=== PATIENT | male | born 1955 | race Caucasian/White ===

== ENCOUNTER 2017-09-14 09:15 | Observation (INO) | payer MEDICARE ==
[2017-09-14 11:28] LABS: ANION GAP 18 (8-16); BLOOD UREA NITROGEN 56 mg/dl (7-20); CALCIUM 8.6 mg/dl (8.4-10.2); CARBON DIOXIDE 19 mmol/L (21-31); CHLORIDE 103 mmol/L (97-110); CREATININE 9.98 mg/dl (0.61-1.24); GLUCOSE 115 mg/dl (70-220); POTASSIUM 4.6 mmol/L (3.5-5.1); SODIUM 135 mmol/L (135-144)
[2017-09-14 14:12] LABS: ADD MAN DIFF? NO
[2017-09-14 14:18] LABS: ABNORMAL IP MESSAGE 1; BASOPHILS % 0.5 % (0.0-2.0); EOSINOPHILS # 0.2 10^3/ul (0.0-0.5); EOSINOPHILS % 3.4 % (0.0-7.0); HEMATOCRIT 28.4 % (42.0-52.0); HEMOGLOBIN 9.8 g/dl (14.0-18.0); LYMPHOCYTES % 16.8 % (15.0-51.0); MEAN CORPUSCULAR HEMOGLOBIN 30.4 pg (29.0-33.0); MEAN CORPUSCULAR HGB CONC 34.5 g/dl (32.0-37.0); MEAN CORPUSCULAR VOLUME 88.2 fl (82.0-101.0); MEAN PLATELET VOLUME 10.3 fl (7.4-10.4); MONOCYTE # 0.5 10^3/ul (0.3-0.9); MONOCYTES % 8.4 % (0.0-11.0); NEUTROPHIL # 4.2 10^3/ul (1.6-7.5); NEUTROPHILS % 70.4 % (39.0-77.0); PLATELET COUNT 66 10^3/UL (140-415); POSITIVE DIFF @See below; RED BLOOD COUNT 3.22 10^6/ul (4.70-6.10); RED CELL DISTRIBUTION WIDTH 13.5 % (11.5-14.5)
[2017-09-14] MEDS ORDERED: ACETAMINOPHEN 325 MG TAB PO (14:30)
[2017-09-14] MEDS ORDERED: ONDANSETRON 4 MG INJ IV (14:30)
[2017-09-14 14:38] LABS: INR 1.18; PROTIME 15.2 Sec (11.9-14.9); PT RATIO 1.2
[2017-09-14 14:39] LABS: PARTIAL THROMBOPLASTIN TIME 30.8 Sec (25.0-35.0)
[2017-09-14 14:57] LABS: ANISOCYTOSIS 1+ (0-0); BAND NEUTROPHILS % (M) 1 % (0-4); EOSINOPHILS % (M) 5 % (0-7); LYMPHOCYTES #M 0.8 10^3/ul (0.8-2.9); LYMPHOCYTES % (M) 14 % (15-51); MICROCYTOSIS 1+ (0-0); MONOCYTE #M 0.1 10^3/ul (0.3-0.9); MONOCYTES % (M) 3 % (0-11); MYELOCYTES % (M) 1 % (0-0); PLATELET ESTIMATE SIG DECREASED; POLYCHROMASIA 3+ (0-0); REACTIVE LYMPHOCYTES #M 0.2 10^3/ul (0.0-0.0); REACTIVE LYMPHOCYTES% (M) 4 % (0-0); SEG NEUT #M 4.3 10^3/ul (1.6-7.5); SEGMENTED NEUTROPHILS (M) % 72 % (39-77); SMUDGE%M 2 % (0-0)
[2017-09-14] MEDS ORDERED: NACL 0.9% 3 ML SYG IV (15:00)
[2017-09-14] MEDS: SOD CHLORIDE 0.9% 1,000 ML IV (15:04)
[2017-09-14 16:33] LABS: ADD UMIC YES; UR ASCORBIC ACID NEGATIVE (NEGATIVE); UR BILIRUBIN (Dip) NEGATIVE (NEGATIVE); UR BLOOD (Dip) NEGATIVE (NEGATIVE); UR CLARITY CLEAR (CLEAR); UR COLOR STRAW (YELLOW); UR GLUCOSE (Dip) 2+ mg/dL (NEGATIVE); UR KETONES (Dip) NEGATIVE (NEGATIVE); UR LEUKOCYTE ESTERASE (Dip) NEGATIVE Leu/ul (NEGATIVE); UR NITRITE (Dip) NEGATIVE (NEGATIVE); UR RBC 0 /HPF (0-5); UR SPECIFIC GRAVITY (Dip) 1.008 (1.003-1.030); UR TOTAL PROTEIN (Dip) 1+ mg/dl (NEGATIVE); UR UROBILINOGEN (Dip) NEGATIVE (NEGATIVE); UR WBC 2 /HPF (0-5)
[2017-09-14] MEDS ORDERED: ALBUMIN HUMAN 25% 50 ML IV (17:30)
[2017-09-14] MEDS ORDERED: SODIUM CHLORIDE 0.9% 1L BAG IV (17:30)
[2017-09-14] MEDS: CITRIC ACID/SODIUM CITRATE 15 ML CUP PO (21:00)
[2017-09-14] MEDS: TERAZOSIN 5 MG CAP PO (21:00)
[2017-09-14 23:30] LABS: ADD MAN DIFF? NO
[2017-09-14 23:31] LABS: WHITE BLOOD COUNT 5.7 10^3/ul (4.8-10.8)
[2017-09-14 23:31] LABS: ABNORMAL IP MESSAGE 1; BASOPHILS % 0.5 % (0.0-2.0); EOSINOPHILS # 0.2 10^3/ul (0.0-0.5); HEMATOCRIT 28.4 % (42.0-52.0); HEMOGLOBIN 9.7 g/dl (14.0-18.0); LYMPHOCYTES # 0.9 10^3/ul (0.8-2.9); LYMPHOCYTES % 15.6 % (15.0-51.0); MEAN CORPUSCULAR HEMOGLOBIN 30.1 pg (29.0-33.0); MEAN CORPUSCULAR HGB CONC 34.2 g/dl (32.0-37.0); MEAN CORPUSCULAR VOLUME 88.2 fl (82.0-101.0); MEAN PLATELET VOLUME 9.8 fl (7.4-10.4); MONOCYTE # 0.5 10^3/ul (0.3-0.9); MONOCYTES % 8.7 % (0.0-11.0); NEUTROPHIL # 4.1 10^3/ul (1.6-7.5); NEUTROPHILS % 70.9 % (39.0-77.0); PLATELET COUNT 83 10^3/UL (140-415); POSITIVE DIFF @See below; RED BLOOD COUNT 3.22 10^6/ul (4.70-6.10); RED CELL DISTRIBUTION WIDTH 13.6 % (11.5-14.5)
[2017-09-15] MEDS: PANTOPRAZOLE (EC) 40 MG TAB PO (08:16)
[2017-09-15] MEDS: AMIODARONE 200 MG TAB PO (08:16)
[2017-09-15] MEDS: CITRIC ACID/SODIUM CITRATE 15 ML CUP PO ×4 (08:17→20:45)
[2017-09-15 08:43] LABS: HAAIG REFLEX REFLEX FILED
[2017-09-15] MEDS: CALCIUM CARBONATE 500 MG CHEW TAB PO ×3 (11:07→18:54)
[2017-09-15 12:11] LABS: HEMOGLOBIN A1C 5.6 % (0-5.9)
[2017-09-15] MEDS ORDERED: BUPIVACAINE 0.25% (MPF) 30 ML INJ (12:47)
[2017-09-15] MEDS ORDERED: POLYMYXIN/BACITRACIN 1L IRRIG (12:48)
[2017-09-15] MEDS ORDERED: CALCIUM CARBONATE 500 MG CHEW TAB PO (12:50)
[2017-09-15] MEDS ORDERED: FENTAnyl 50 MCG/ML VIAL (13:19)
[2017-09-15] MEDS ORDERED: MIDAZOLAM 1 MG/ML 2 ML INJ (13:19)
[2017-09-15 13:33] LABS: HEPATITIS B SURFACE ANTIGEN NEGATIVE (NEGATIVE)
[2017-09-15 13:35] LABS: POTASSIUM 4.9 mmol/L (3.5-5.1)
[2017-09-15 13:51] LABS: HEPATITIS B CORE ANTIBODY NEGATIVE (NEGATIVE); HEPATITIS C VIRAL ANTIBODY NEGATIVE (NEGATIVE)
[2017-09-15] MEDS: LIDOCAINE 1% (MPF) 30 ML INJ (14:15)
[2017-09-15] MEDS: THROMBIN 5000 UNIT VIAL ×2 (14:17→14:18)
[2017-09-15] MEDS: GELATIN SIZE 100 SPONGE (14:18)
[2017-09-15] MEDS: HEPARIN 1000 UNITS/ML 10 ML INJ (14:19)
[2017-09-15] MEDS ORDERED: ETOMIDATE 20 MG INJ (14:25)
[2017-09-15] MEDS ORDERED: LIDOCAINE 2% (SDV) 5 ML INJ (14:25)
[2017-09-15] MEDS ORDERED: CEFAZOLIN 1 GM INJ (14:25)
[2017-09-15] MEDS ORDERED: DIPHENHYDRAMINE 50 MG INJ IV (15:00)
[2017-09-15] MEDS ORDERED: hydrALAzine 20 MG INJ IV (15:00)
[2017-09-15] MEDS ORDERED: ONDANSETRON 4 MG INJ IV (15:00)
[2017-09-15] MEDS ORDERED: FENTAnyl 50 MCG/ML VIAL IV (15:00)
[2017-09-15] MEDS ORDERED: HYDROmorphONE 1 MG/5 ML IV SYRINGE IV ×2 (15:00)
[2017-09-15] MEDS: TERAZOSIN 5 MG CAP PO (20:42)
[2017-09-16] MEDS: CITRIC ACID/SODIUM CITRATE 15 ML CUP PO ×4 (08:51→22:00)
[2017-09-16] MEDS: CALCIUM CARBONATE 500 MG CHEW TAB PO ×3 (08:51→17:36)
[2017-09-16] MEDS: AMIODARONE 200 MG TAB PO (08:52)
[2017-09-16] MEDS: PANTOPRAZOLE (EC) 40 MG TAB PO (08:52)
[2017-09-16] MEDS: NIFEdipine (XL) 60 MG TAB PO (11:57)
[2017-09-16] MEDS ORDERED: hydrALAzine 20 MG INJ IV (12:00)
[2017-09-16] MEDS: TERAZOSIN 5 MG CAP PO (22:04)
[2017-09-17] MEDS: CALCIUM CARBONATE 500 MG CHEW TAB PO ×2 (08:43→12:39)
[2017-09-17] MEDS: PANTOPRAZOLE (EC) 40 MG TAB PO (08:43)
[2017-09-17] MEDS: AMIODARONE 200 MG TAB PO (08:44)
[2017-09-17] MEDS: CITRIC ACID/SODIUM CITRATE 15 ML CUP PO ×2 (08:44→12:32)
== END 2017-09-17 16:20 | disposition home or self-care (01) ==
LOC: E/R 09:15 → REC 18:42 → TEL 14:07
DX: T82.838A Hemorrhage due to vascular prosthetic devices, implants and grafts, initial encounter (principal); I12.0 Hypertensive chronic kidney disease with stage 5 chronic kidney disease or end stage renal disease; E11.22 Type 2 diabetes mellitus with diabetic chronic kidney disease; N18.6 End stage renal disease; Z99.2 Dependence on renal dialysis; Y83.2 Surgical operation with anastomosis, bypass or graft as the cause of abnormal reaction of the patient, or of later complication, without mention of misadventure at the time of the procedure
CPT/HCPCS: 35206; 80048; 81001; 83036; 84132; 85025; 85610; 85730; 86704; 86709; 86803; 86850; 86900; 86901; 87340; 90935; 99217; 99285-25; G0378

== ENCOUNTER 2017-09-22 15:02 | Inpatient (IN) | payer MEDICARE ==
[2017-09-22 16:46] LABS: ADD MAN DIFF? NO
[2017-09-22 16:49] LABS: BASOPHILS % 0.6 % (0.0-2.0); EOSINOPHILS # 0.1 10^3/ul (0.0-0.5); EOSINOPHILS % 2.8 % (0.0-7.0); HEMATOCRIT 26.1 % (42.0-52.0); HEMOGLOBIN 8.6 g/dl (14.0-18.0); IMMATURE GRANS #M 0.04 10^3/ul; IMMATURE GRANS % (M) 0.8 %; LYMPHOCYTES # 0.9 10^3/ul (0.8-2.9); LYMPHOCYTES % 18.1 % (15.0-51.0); MEAN CORPUSCULAR HEMOGLOBIN 29.5 pg (29.0-33.0); MEAN CORPUSCULAR VOLUME 89.4 fl (82.0-101.0); MEAN PLATELET VOLUME 9.8 fl (7.4-10.4); MONOCYTE # 0.5 10^3/ul (0.3-0.9); MONOCYTES % 9.8 % (0.0-11.0); NEUTROPHIL # 3.5 10^3/ul (1.6-7.5); NEUTROPHILS % 67.9 % (39.0-77.0); PLATELET COUNT 124 10^3/UL (140-415); RED BLOOD COUNT 2.92 10^6/ul (4.70-6.10)
[2017-09-22 16:49] LABS: WHITE BLOOD COUNT 5.1 10^3/ul (4.8-10.8)
[2017-09-22 16:53] LABS: INR 1.11; PROTIME 14.5 Sec (11.9-14.9); PT RATIO 1.1
[2017-09-22 16:55] LABS: PARTIAL THROMBOPLASTIN TIME 32.1 Sec (25.0-35.0)
[2017-09-22 17:03] LABS: ALANINE AMINOTRANSFERASE 7 IU/L (13-69); ALBUMIN/GLOBULIN RATIO 1.14; ALKALINE PHOSPHATASE 53 IU/L (42-121); ANION GAP 20 (8-16); ASPARTATE AMINO TRANSFERASE 19 IU/L (15-46); BLOOD UREA NITROGEN 54 mg/dl (7-20); CALCIUM 8.6 mg/dl (8.4-10.2); CARBON DIOXIDE 18 mmol/L (21-31); CHLORIDE 107 mmol/L (97-110); CREATININE 10.48 mg/dl (0.61-1.24); GLUCOSE 141 mg/dl (70-220); POTASSIUM 4.7 mmol/L (3.5-5.1); SODIUM 140 mmol/L (135-144); TOTAL PROTEIN 7.5 g/dl (6.1-8.1)
[2017-09-22] MEDS ORDERED: ACETAMINOPHEN 325 MG TAB PO ×2 (18:30→19:00)
[2017-09-22] MEDS ORDERED: ONDANSETRON 4 MG INJ IV ×2 (18:30→19:00)
[2017-09-22] MEDS ORDERED: SODIUM CHLORIDE 0.9% 1L BAG IV (19:00)
[2017-09-22] MEDS ORDERED: morphine 2 MG INJ IV (19:00)
[2017-09-22] MEDS ORDERED: NACL 0.9% 3 ML SYG IV (19:00)
[2017-09-22] MEDS ORDERED: LORAZEPAM 2 MG INJ IV (19:00)
[2017-09-22] MEDS ORDERED: HYDROCODONE/APAP (5/325) TAB PO (19:00)
[2017-09-22] MEDS ORDERED: DOCUSATE SODIUM 100 MG CAP PO (19:00)
[2017-09-22] MEDS ORDERED: MAGNESIUM HYDROXIDE 30ML CUP PO (19:00)
[2017-09-22] MEDS ORDERED: NA PHOSPHATE/BIPHOS 133 ML ENEMA PR (19:00)
[2017-09-22] MEDS ORDERED: NITROGLYCERIN (SL) 0.4 MG TAB SL (19:00)
[2017-09-22] MEDS ORDERED: ALBUTEROL/IPRATROPIUM (NEB) 3 ML AMP HHN (19:00)
[2017-09-22] MEDS ORDERED: ALBUMIN HUMAN 25% 50 ML IV (19:00)
[2017-09-22] MEDS ORDERED: hydrALAzine 20 MG INJ IV (19:00)
[2017-09-22 20:36] LABS: FREE T4 (FREE THYROXINE) 2.32 ng/dl (0.78-2.44)
[2017-09-22] MEDS: LOSARTAN 50 MG TAB PO (23:36)
[2017-09-22] MEDS: TERAZOSIN 5 MG CAP PO (23:37)
[2017-09-23] MEDS: FOLIC ACID 1 MG TAB PO (08:44)
[2017-09-23] MEDS: PANTOPRAZOLE (EC) 40 MG TAB PO (08:44)
[2017-09-23] MEDS: AMIODARONE 200 MG TAB PO (08:55)
[2017-09-23] MEDS: LOSARTAN 50 MG TAB PO (08:56)
[2017-09-23] MEDS: NIFEdipine (XL) 60 MG TAB PO (08:56)
== END 2017-09-23 13:06 | disposition left against medical advice (07) | DRG 314 ==
LOC: E/R 15:02 → 6WM 18:29
PROC: 5A1D70Z Performance of Urinary Filtration, Intermittent, Less than 6 Hours Per Day (ICD-10-PCS; principal; 2017-09-23)
DX: T82.838A Hemorrhage due to vascular prosthetic devices, implants and grafts, initial encounter (principal); N18.6 End stage renal disease; I13.11 Hypertensive heart and chronic kidney disease without heart failure, with stage 5 chronic kidney disease, or end stage renal disease; E78.00 Pure hypercholesterolemia, unspecified; Z79.82 Long term (current) use of aspirin; Z99.2 Dependence on renal dialysis; Y83.2 Surgical operation with anastomosis, bypass or graft as the cause of abnormal reaction of the patient, or of later complication, without mention of misadventure at the time of the procedure
CPT/HCPCS: 71045; 80053; 84439; 85025; 85610; 85730; 93005; 97165; 99285-25